=== PATIENT | male | born 1950 | race Caucasian/White ===

== ENCOUNTER 2025-05-14 09:27 | Emergency (ER) | payer OTHER, SELFPAY ==
[2025-05-14 09:33] VITALS: BP 133/63
--- NOTE | 2025-05-14 10:16 | ED.GENMED ---
History of Present Illness
General
Chief Complaint: Ear Problem
Source: patient
Exam Limitations: none
Time Seen by Provider: 05/14/25 09:57
Nursing documentation reviewed up to this point in time: agreed with
History of Present Illness
History of Present Illness:
74-year-old male presenting to the ER with concerns of clogged ears with earwax. He claims that this has been a long time coming but is reached a severe level recently where he is having trouble hearing out of both ears due to the large
accumulation. Denies additional symptoms otherwise.
Past History
Past History
ED Past Medical History: COPD and Other (PTSD, prostatic hypertrophy,)
ED Past Surgical History: None
Social History
Tobacco: Smoker
Personal:
Living: alone
Employment: Not employed
Review of Systems
Review of Systems
Allergies reviewed?: Yes
All Other Systems: ROS reviewed and negative except as documented in HPI and ROS
Phy Exam
Physical Exam
Physical Exam:
GENERAL: Alert , in no apparent distress
EYE: pupils equal and reactive
NECK: Supple, no significant adenopathy.
ENT: Bilateral cerumen impaction o/p clr, mmm.
CARDIAC: Regular rate and rhythm .
LUNGS: Clear breath sounds bilaterally, no acute respiratory distress, no wheezes/rales/rhonchi
ABDOMEN: Soft, without focal tenderness, no r/g, no cvat
NEUROLOGICAL: Alert and oriented, no focal neuro deficits
SKIN: Warm and dry, skin intact.
MUSCULOSKELETAL: No edema, well perfused.
PSYCH: Normal and appropriate interaction.
Course
Vital Signs
Initial and Last Documented VS:
Initial Vital Signs
Temp Pulse Resp BP Pulse Ox
98.0 F 94 16 133/63 97
05/14/25 09:33 05/14/25 09:33 05/14/25 09:33 05/14/25 09:33 05/14/25 09:33
Last Documented Vital Signs
Temp Pulse Resp BP Pulse Ox
98.0 F 94 16 133/63 97
05/14/25 09:33 05/14/25 09:33 05/14/25 09:33 05/14/25 09:33 05/14/25 09:33
Procedures
Foreign Body Removal-Ear
Bilateral External canal:
Tenderness: mild
Any local drainage: none
External ear canal cleaned with removal of cerumen using: irrigation and irrigation and curette
Removal of foreign body using: irrigation, alligator forceps and curette
Exam of canal after removal: no inflammation
Additional Information:
Large amount of earwax removed from bilateral ear canals
MDM/Problems Addressed
MDM/Problems Addressed:
74-year-old male presenting with concerns of bilateral cerumen impactions. These were removed with irrigation and curettes. Patient stable for discharge no additional symptoms. Significant improvement of hearing after procedure.
*Pulse Oximetry
SaO2: 97
Oxygen Mode of Delivery: Room air
Patient hypoxic: no (97)
*Critical Care Note
Total Time (30-74mins, 75-104mins- exclusive of procedures): Not Applicable
ED Attending Note
-
Portions of this chart may have been created with voice recognition software.� Occasional wrong word or��sound alike� substitutions may have occurred due to the inherent limitations of voice recognition software.
Discharge Plan
Departure
Patient Disposition: Home (Routine Discharge)
Date of Disposition: 05/14/25
Time of Disposition: 10:18
Patient with high blood pressure during this ER visit?: No
Condition: Good
Covid-19: Not Applicable
Discharge Problem:
Bilateral impacted cerumen
Instructions: Ear Wax Impaction (DC)
Prescriptions:
New
Debrox 6.5 % drops
5 drp otic (ear) DAILY 4 Days Qty: 15 0RF
No Action
lorazepam 0.5 MG tablet
0.5 mg PO DAILY Qty: 10 0RF
Activity Restrictions/Additional Instructions:
You came to the ER with concerns of clogged ear canals. These were removed while here. Please use Debrox to reduce the risk of this recurring. Return for any worsening, new or concerning symptoms.
Interventions
Interventions:
*Risk Screen - Suicide Last Done: 05/14/25 09:33
*General Assessment Last Done: 05/14/25 09:33
*Neglect/Abuse Screening Last Done: 05/14/25 09:33
*ED COVID-19 Vaccine History Last Done: 05/14/25 09:33
Discharge Date and Time
Print Language: CYPRIOT
== END 2025-05-14 11:03 | disposition home or self-care (01) ==
LOC: EMR 09:27
PROVIDERS: EMERGENCY PHYSICIAN Emergency Medicine; FAMILY PHYSICIAN Internal Medicine
DX: H61.23 Impacted cerumen, bilateral (principal); J44.9 Chronic obstructive pulmonary disease, unspecified; F17.200 Nicotine dependence, unspecified, uncomplicated
CPT/HCPCS: 69210; 99283